=== PATIENT | male | born 1950 | race Caucasian/White ===

== ENCOUNTER 2019-02-10 19:04 | Emergency (ER) | payer MEDICAID ==
[~2019-02-10] VITALS: Ht 193 cm; Wt 85.0 kg
[~2019-02-10 19:04] MED LIST: HYDR-4353 PO
[2019-02-10 19:11] VITALS: BP 107/65
[2019-02-10] MEDS ORDERED: HYDROcodone/acetaminophen 5mg/325mg tablet PO STA (19:13)
--- NOTE | 2019-02-10 19:20 | NUR ---
pt to xray
== END 2019-02-10 20:33 | disposition home or self-care (01) ==
LOC: ER 19:05
DX: M25.531 Pain in right wrist (principal); G89.29 Other chronic pain; R20.0 Anesthesia of skin; Z98.890 Other specified postprocedural states; Z79.899 Other long term (current) drug therapy
CPT/HCPCS: 29125; 73110; 99283